=== PATIENT | female | born 1940 | race African-American/Black ===

== ENCOUNTER → 2016-06-26 | Outpatient (CLI) | payer OTHER ==
[~2016-06-26] MED LIST: ALDACTONE25 MG PO; ALLOPURINOL 10100 M1 PO; AMLODIPINE BESY10 MG PO; ASPIR 8181 MG PO; BREO ELLIPTA 11 EACH IH; CHLORTHALIDONE25 MG PO; DIOVAN 80 MG TA80 M1 PO; FLOMAX0.4 MG PO; LEVOTHYROXINE 0.1 MG PO; METFORMIN HCL500 MG PO; SINGULAIR 10 MG10 M1 PO; TRAMADOL 50 MG50 MG PO
--- NOTE | ~2016-06-26 | EKG ---
[address] [address] ELECTROCARDIOGRAM REPORT Name: ELLIOT LOVETT Room #: REG [facility]#: [id number] Admission: 06/26/16 Attend Phys: Richard Morrison MD Discharge: Date of : 38 Report #: [id number] THIS REPORT FOR: //name// [facility] Test Date: 2016-06-26 Test Time: 07:19:06 Pat Name: ELLIOT LOVETT Department: Room: Gender: [employer]: GRETTA : 1940 Requested By: Richard Morrison Order Number: [id number] MD: Salo Knight Measurements Intervals [place] Rate: 62 P: 33 NE: 230 QRS: 10 QRSD: 105 T: 22 QT: 418 QTc: 425 Interpretive Statements Sinus rhythm Prolonged NE interval No previous ECG available for comparison Electronically Signed On 06-26-2016 8:24:08 TIE TAMPER by Salo Knight [email or web address] <ELECTRONICALLY SIGNED> By: Salo Knight MD 06/26/16 0824 0719 07 MD BRIANNE Ibarra
== END | disposition home or self-care (01) ==
LOC: LITH 05:08
DX: N20.0 Calculus of kidney (principal); Z90.710 Acquired absence of both cervix and uterus